=== PATIENT | female | born 1980 | race Caucasian/White ===

== ENCOUNTER 2020-05-08 21:22 | Emergency (ER) | payer BC, SELFPAY ==
[2020-05-08 21:43] VITALS: BP 129/68; PULSE 64; RESP 16; TEMP 36.6; O2SAT 100
[2020-05-08] MEDS: Fluorescein STRIPS 100/BOX 1 MG OP (22:04)
[2020-05-08] MEDS: Tetracaine 0.5% 4 ML BTL OP (22:04)
--- NOTE | 2020-05-08 22:09 | ED.GENADUL_ITS ---
Discharge Plan Disposition Patient Disposition: HOME Condition: Good Discharge Details Chief Complaint: EyeProblem Clinical Impression: Abrasion, corneal Primary Care Provider: KristanLocal ED Provider: Maria Victoria Jones Home Meds and New Rx's Prescriptions: Continued escitalopram oxalate [Lexapro] 10 mg Tablet 10 mg PO DAILY RF: 0 Discharge Instructions Instructions: Corneal Abrasion (ED) Additional Instructions: Apply eyedrops every 4 hours while awake for 7 days. Follow-up with ophthalmology immediately for any visual disturbances Medical Decision Making Patient presents with complaints of right eye pain after being poked in the eye by her pet duck. She has no visual disturbance but does have sensitivity to light.. Patient given tetracaine with resolution of discomfort. Eye is stained with fluorescein and uptake is noted at the 3 o'clock position on her right eye. Her pupils are equal and reactive to light her EOMs are intact. Her tetanus is updated. She is given ciprofloxacin eyedrops and will be discharged home follow-up with ophthalmology immediately for any visual disturbances or concerns HPI General Mode of arrival: ambulatory . Date/Time Provider Initiated Documentation: 05/08/20 21:48 . Limitations to Documentation: no limitations . Information obtained by: patient . HPI Narrative: Patient complaint of right eye pain since being poked in the eye by her pet duck while swimming with it. Denies any visual disturbance. States it is sensitive to light Related Data Home Medications Medication Instructions Recorded Confirmed escitalopram oxalate [Lexapro] 10 mg PO DAILY 05/08/20 05/08/20 Allergies Allergy/AdvReac Type Severity Reaction Status Date / Time No Known Allergies Allergy Unverified 05/08/20 21:45 General Stated Complaint: EyeProblem DIGNA: 4 Review of Systems Eyes Eyes: Denies blurry vision, Denies change in vision, Denies eye discharge, Reports irritation and Reports photophobia [facility] Social History Smoking/Tobacco Use Status: Never Alcohol Intake: never Drug use: Never Substance use type: does not use Do you feel safe at home: Yes Do you feel safe in your relationship?: Yes Exam HENMT Head: normal to inspection, normocephalic and atraumatic Eyes Alignment and Position: alignment normal Eyelids: eyelids normal Conjunctivae: conjunctivae normal Sclera: sclerae normal Pupils: PERRL EOM: EOM intact bilaterally Eyes/upper lids images: 1. uptake of fluroscein Course Vital Signs Vital signs: Vital Signs Temperature 36.6 C 05/08/20 21:43 Pulse 64 05/08/20 21:43 Respiratory Rate 16 05/08/20 21:43 Blood Pressure 129/68 05/08/20 21:43 Pulse Oximetry 100 05/08/20 21:43 Temperature 36.6 C 05/08/20 21:43 Temperature Source Skin 05/08/20 21:43 Pulse 64 05/08/20 21:43 Respiratory Rate 16 05/08/20 21:43 Respiratory Effort 05/08/20 21:45 Blood Pressure 129/68 05/08/20 21:43 Blood Pressure Position Sitting 05/08/20 21:43 Pulse Oximetry 100 05/08/20 21:43 Oxygen Delivery Method Room Air 05/08/20 21:43 Oxygen Flow Rate 0 05/08/20 21:43 Pain Level 8 05/08/20 21:43
[2020-05-08] MEDS: Tetanus & Diphtheria Tox,ADULT 0.5 ML VIAL IM (22:32)
[2020-05-08] MEDS: Ibuprofen 800 MG TAB PO (22:32)
[2020-05-08] MEDS: Ciprofloxacin 0.3% 2.5 ML BTL OD (22:38)
== END 2020-05-08 22:40 | disposition home or self-care (01) ==
PROVIDERS: Emergency Provider Nurse Practitioner Acute Care
DX: S05.01XA Injury of conjunctiva and corneal abrasion without foreign body, right eye, initial encounter (principal); W61 Contact with birds (domestic) (wild)
CPT/HCPCS: 90471; 99284; 99283

== ENCOUNTER 2020-06-07 16:15 | Emergency (ER) | payer BC, SELFPAY ==
[2020-06-07 16:18] VITALS: BP 151/88; PULSE 61; RESP 15; TEMP 37; O2SAT 98
--- NOTE | 2020-06-07 16:24 | W.ED.GENAD ---
Discharge Plan Disposition Patient Disposition: HOME Condition: Stable Discharge Details Chief Complaint: EyeProblem Clinical Impression: Abrasion, corneal Primary Care Provider: Kristan,Local ED Provider: Luke Gordillo Home Meds and New Rx's Prescriptions: New erythromycin 5 mg/gram (0.5 %) ointment 0.5 inch OP TID Qty: 1 RF: 0 Continued escitalopram oxalate [Lexapro] 10 mg Tablet 10 mg PO DAILY RF: 0 Discharge Instructions Instructions: Corneal Abrasion (ED) Additional Instructions: if still symptomatic in 2 days call [facility] for an appointment [phone] return to the emergency department for severe worsening pain or vision changes Medical Decision Making 40 yo female with no significant pmhx comes in with right eye pain. She was gardening earlier today around 11am and a thorn brushed her right eye. Denies fall or other trauma. Has been having pain in the right eye since. She is unable to fully open the right eye due to pain on exam, no periorbital swelling and has mild injection of the conjunctiva. Will place tetracaine to perform better exam. pt now opening eye and has full eomi, perrl, no zhen's sign on flourescein exam, no fb even on eyelid eversion, has 2mm corneal abrasion on conjunctiva at the 3 oclock position. no evidence of globe rupure. Will place on erythromycin ointment and advised if not improving within 2 days to see [facility] and if worsening return to the emergency department Differential Diagnosis Differential Diagnosis: conjunctivitis, corneal abrasion HPI General Mode of arrival: ambulatory. Date/Time Provider Initiated Documentation: 06/07/20 16:22. Limitations to Documentation: no limitations. Information obtained by: patient. History of Present Illness 40 year old F presents to the emergency department with the chief complaint of right eye pain, described as moderate, and is localized to the eyes. Patient reports no radiation. Patient started experiencing this hour(s) (5) and it has been constant. No relieving factors improve symptom(s), No exacerbating factors reported . Patient did receive the following treatments prior to arrival, none Related Data Home Medications Medication Instructions Recorded Confirmed escitalopram oxalate [Lexapro] 10 mg PO DAILY 05/08/20 06/07/20 erythromycin 0.5 inch OP TID #1 gm 06/07/20 Previous Rx's Medication Instructions Recorded erythromycin 0.5 inch OP TID #1 gm 06/07/20 Allergies Allergy/AdvReac Type Severity Reaction Status Date / Time No Known Allergies Allergy Unverified 06/07/20 16:22 General Stated Complaint: EyeProblem DIGNA: 4 Review of Systems All systems reviewed & are unremarkable except as noted in HPI and below Constitutional Constitutional: Denies chills, Denies fever(s) and Denies weakness Cardiovascular Cardiovascular: Denies chest pain and Denies dyspnea Respiratory Respiratory: Denies cough and Denies dyspnea Gastrointestinal Gastrointestinal: Denies abdominal pain, Denies nausea and Denies vomiting Musculoskeletal Musculoskeletal: Denies joint swelling Neurologic Neurologic: Denies weakness Psychiatric Psychiatric: Denies depression [facility] Social History Smoking/Tobacco Use Status: Never Alcohol Intake: never Drug use: Never Substance use type: does not use Do you feel safe at home: Yes Do you feel safe in your relationship?: Yes Exam Const General: no acute distress Orientation: alert HENMT Head: normal to inspection Ears: external ears normal General nose exam: external nose normal Mouth: moist mucous membranes Eyes Eyelids: eyelids normal Neck Neck: normal visual inspection Resp Effort & Inspection: normal respiratory effort and able to speak in complete sentences Cardio Rate: regular rate Skin General skin exam: no rashes or lesions noted Neuro General: patient alert and patient oriented x3 Extrem General: normal to inspection Psych Mental Status: mental status grossly normal Course Vital Signs Vital signs: Vital Signs Temperature 37 C 06/07/20 16:18 Pulse 61 06/07/20 16:18 Respiratory Rate 15 06/07/20 16:18 Blood Pressure 151/88 H 06/07/20 16:18 Pulse Oximetry 98 06/07/20 16:18 Temperature 37 C 06/07/20 16:18 Temperature Source Temporal Artery Scan 06/07/20 16:18 Pulse 61 06/07/20 16:18 Respiratory Rate 15 06/07/20 16:18 Respiratory Effort Non-Labored 06/07/20 16:21 Blood Pressure 151/88 H 06/07/20 16:18 Blood Pressure Position Sitting 06/07/20 16:18 Pulse Oximetry 98 06/07/20 16:18 Oxygen Delivery Method Room Air 06/07/20 16:18 Oxygen Flow Rate 0 06/07/20 16:18 Pain Level 4 06/07/20 16:18
[2020-06-07] MEDS: Fluorescein STRIPS 100/BOX 1 MG OP (16:34)
[2020-06-07] MEDS: Balanced Salt Solution 15 ML BTL OP (16:34)
[2020-06-07] MEDS: Tetracaine 0.5% 4 ML BTL OP (16:34)
== END 2020-06-07 16:48 | disposition home or self-care (01) ==
LOC: ER 16:58
PROVIDERS: Emergency Provider Emergency Medicine
DX: S05.01XA Injury of conjunctiva and corneal abrasion without foreign body, right eye, initial encounter (principal)
CPT/HCPCS: 99283